=== PATIENT | female | born 1950 | race Caucasian/White ===

== ENCOUNTER 2017-08-16 09:48 | Outpatient (CLI) | payer MEDICARE ==
--- NOTE | 2017-08-16 11:51 | ULT ---
RENAL ULTRASOUND: 08/16/17 CLINICAL HISTORY: Prior bladder malignancy and history of cystectomy. Urinary tract infection. FINDINGS: Symmetric renal length at approximately 10 cm noted. Prior to voiding, mild prominence of the right renal collecting system, demonstrating resolution status post voiding. Imaged aspects of the patient 's bladder demonstrate no significant abnormality. Otherwise, no significant pathology. IMPRESSION: Mild prominence of right renal collecting system which improves with voiding. Minimal residual right renal collecting system prominence remains without overt postvoid hydronephrosis. POS: ALYCIA
== END 2017-08-16 09:49 | disposition home or self-care (01) ==
LOC: ULT 09:48
PROVIDERS: ATTEND Urology
DX: N39.0 Urinary tract infection, site not specified (principal); R33.9 Retention of urine, unspecified
CPT/HCPCS: 76770

== ENCOUNTER 2018-08-29 11:10 | Outpatient (CLI) | payer MEDICARE ==
--- NOTE | 2018-08-29 13:37 | MMO ---
BILATERAL SCREENING MAMMOGRAM: DATE: 08/29/18 HISTORY: 68-year-old female for screening mammography. COMPARISON: 08/29/17, 07/13/16, 11/09/14. FINDINGS: Bilateral MLO and CC views of the breasts, as well as implant displacement views, show scattered fibr oglandular breast tissue. There is no evidence of suspicious mass, suspicious cluster of microcalcifi cations, or area of architectural distortion. Interpretation of this mammogram was performed with the assistance of computer-aided detection. IMPRESSION: BIRADS 1: Negative Annual screening mammography is recommended. POS: ALYCIA
--- NOTE | 2018-08-29 13:48 | ULT ---
RENAL ULTRASOUND: COMPARISON: 08/16/2017. HISTORY: Urinary retention. History of bladder cancer. TECHNIQUE: Multiplanar, kaplan scale, and color Doppler images were obtained in a renal ultrasound. FINDINGS: The kidneys are normal in echogenicity without hydronephrosis or calculi and measure 10.4 and 10.0 cm in length on the right and left, respectively. Limited visualization of the urinary bladder is unremarkable. No significant post void residual is s een. IMPRESSION: Unremarkable renal ultrasound. POS: ALYCIA
== END 2018-08-29 11:11 | disposition home or self-care (01) ==
LOC: SCSMAMMO 11:10
PROVIDERS: ATTEND Obstetrics & Gynecology
DX: Z12.31 Encounter for screening mammogram for malignant neoplasm of breast (principal); R33.9 Retention of urine, unspecified
CPT/HCPCS: 76770; 77067

== ENCOUNTER 2019-10-27 08:59 | Outpatient (CLI) | payer MEDICARE ==
--- NOTE | 2019-10-27 09:26 | ULT ---
ULTRASOUND RETROPERITONEUM COMPLETE: (RENAL) DATE: 10/27/2019 HISTORY: 69-year-old female with history of bladder cancer and "retention of urine" FINDINGS: The right kidney measures 10.5 x 4.5 x 5.5 cm. The left kidney measures 11.5 x 4.5 x 5 cm. Both kidneys have normal parenchymal echogenicity. There is no hydronephrosis. No moderate sized or large renal cystic or solid renal lesion is identified. Cursory images of the urinary bladder demonstrate 140 mL volume. IMPRESSION: Negative
== END 2019-10-27 09:00 | disposition home or self-care (01) ==
LOC: SCSULT 08:59
PROVIDERS: ATTEND Urology
DX: C67.9 Malignant neoplasm of bladder, unspecified (principal); N31.1 Reflex neuropathic bladder, not elsewhere classified; R33.9 Retention of urine, unspecified
CPT/HCPCS: 76770

== ENCOUNTER 2021-12-21 14:20 | Outpatient (CLI) | payer MEDICARE, OTHER | END 2021-12-21 14:21 | disposition home or self-care (01) | LOC: BICULT 14:20 | PROVIDERS: ATTEND Urology | DX: C67.9 Malignant neoplasm of bladder, unspecified (principal) | CPT/HCPCS: 76770 ==

== ENCOUNTER 2021-12-29 15:25 | Outpatient (CLI) | payer MEDICARE ==
[2021-12-29 16:10] LABS: #Eosinphils 0.1 10x3/uL (0.0-0.5); #Monocytes 0.6 10x3/uL (0.0-1.1); #Neutrophils 4.4 10x3/uL (1.5-8.4); %Basophils 0.5 % (0.0-2.0); %Eosinophils 0.9 % (0.0-6.0); %Lymphocytes 33.6 % (18.0-47.0); %Monocytes 7.4 % (0.0-10.0); %Neutrophils 57.3 % (40.0-75.0); Hemoglobin 13.1 g/dL (12.0-15.5); Mean Corpuscular HGB CONC 32.5 g/dL (32.0-36.0); Mean Corpuscular Hemoglobin 30.5 pg (27.0-33.0); Mean Corpuscular Volume 93.9 fl (81.6-98.3); Mean Platelet Volume 9.9 fl (7.4-10.4); Platelet Count 278 10x3/uL (150-450); RBC Distribution Width 12.3 % (11.5-14.5); Red Blood Cell (RBC) Count 4.29 10x6/uL (3.90-5.03); White Blood Cell (WBC) Count 7.7 10x3/uL (3.5-10.5)
[2021-12-29 16:29] LABS: ALT (SGPT) 14 U/L (8-55); AST (SGOT) 18 U/L (5-34); Albumin 4.3 g/dL (3.4-4.8); Alkaline Phosphatase 65 U/L (40-110); Anion Gap 14 mmol/L (10-20); BUN (Urea Nitrogen) 25 mg/dL (9.8-20.1); Bilirubin, Direct 0.3 mg/dL (0.1-0.3); Calc. Creatinine Clearance 0 mL/min (70-130); Calcium 9.6 mg/dL (7.8-10.44); Carbon Dioxide 27 mmol/L (23-31); Chloride 104 mmol/L (98-107); Glucose 85 mg/dL (83-110); Potassium 4.2 mmol/L (3.5-5.1); Protein, Total 6.6 g/dL (5.8-8.1); Sodium 141 mmol/L (136-145)
[2021-12-30 19:20] LABS: SARS-CoV-2 PCR by NAA Not Detected (NotDetected)
== END 2021-12-29 15:26 | disposition home or self-care (01) ==
LOC: LABBT 15:25
PROVIDERS: ATTEND Surgery
DX: Z01.812 Encounter for preprocedural laboratory examination (principal); K80.20 Calculus of gallbladder without cholecystitis without obstruction; Z20.822 Contact with and (suspected) exposure to COVID-19
CPT/HCPCS: 80048; 80076; 85025; U0003; U0005

== ENCOUNTER 2022-01-02 12:35 | Day surgery (SDC) | payer MEDICARE ==
[2021-12-23 13:47] VITALS: BMI 20.7
[2022-01-02] MEDS ORDERED: Lidocaine 1% MPF 2 ML VIAL ONE (12:53)
[2022-01-02] MEDS ORDERED: ceFAZolin 2 GM/Dextrose 50 ML IVPB ONE (12:54)
[2022-01-02] MEDS ORDERED: Famotidine/PF 20 mg/2ml Vial ONE (14:27)
[2022-01-02] MEDS ORDERED: Bupivacaine 0.25% HCL 30 ML VIAL ONE (14:38)
[2022-01-02] MEDS ORDERED: Xylocaine 1% w/ Epi 1:100K 10 ML VIAL ONE (14:38)
[2022-01-02] MEDS ORDERED: Fentanyl 250 MCG/5 ML VIAL ONE (14:47)
[2022-01-02] MEDS ORDERED: Lidocaine 1% PF 5 ML VIAL ONE (15:00)
[2022-01-02] MEDS ORDERED: Ondansetron PF 4 MG/2 ML Vial ONE (15:00)
[2022-01-02] MEDS ORDERED: Dexamethasone 20 MG/5 ML VIAL ONE (15:00)
[2022-01-02] MEDS ORDERED: PROPOFOL 200 MG/20 ML VIAL ONE (15:00)
[2022-01-02] MEDS ORDERED: Glycopyrrolate 0.2 MG/ML 5 ML SYRINGE ONE (15:00)
[2022-01-02] MEDS ORDERED: Rocuronium Bromide 10 MG/ML (10ML VIAL) ONE (15:00)
[2022-01-02] MEDS ORDERED: SUGAMMADEX SODIUM 200 MG/2 ML VIAL ONE (15:43)
[2022-01-02] MEDS ORDERED: HYDROcodone/Acetaminophen 5/325 mg Tablet ONE (16:36)
== END 2022-01-02 17:07 | disposition home or self-care (01) ==
LOC: SDC 12:35
PROVIDERS: ATTEND Surgery
PROC: 0FT44ZZ Resection of Gallbladder, Percutaneous Endoscopic Approach (ICD-10-PCS; principal; 2022-01-02)
DX: K80.10 Calculus of gallbladder with chronic cholecystitis without obstruction (principal); Z85.51 Personal history of malignant neoplasm of bladder; Z87.891 Personal history of nicotine dependence; Z79.899 Other long term (current) drug therapy
CPT/HCPCS: 47562; 93005; C1713; 88304; 93010; J0690; J1100; J2405; J2704; J3010; S0020; S0028

== ENCOUNTER 2022-12-29 14:36 | Outpatient (CLI) | payer MEDICARE | END 2022-12-29 14:37 | disposition home or self-care (01) | LOC: BICULT 14:36 | PROVIDERS: ATTEND Urology | DX: C67.9 Malignant neoplasm of bladder, unspecified (principal) | CPT/HCPCS: 76770 ==